=== PATIENT | male | born 1940 | race Asian ===

== ENCOUNTER 2019-06-10 06:56 | Day surgery (SDC) | payer MEDICARE, OTHER ==
[~2019-06-10 06:56] MED LIST: DIAZEPAM 5 MG TAB PO; DIPHENHYDRAMINE 50 MG CAP PO; FAMOTIDINE 20 MG TAB PO; SOD CHLORIDE 0.45% 1,000 ML IV
[2019-06-10 07:53] LABS: ADD MAN DIFF? NO
[2019-06-10 07:57] LABS: BASOPHIL # 0.1 10^3/ul (0.0-0.1); BASOPHILS % 2.4 % (0.0-2.0); EOSINOPHILS # 0.4 10^3/ul (0.0-0.5); EOSINOPHILS % 6.9 % (0.0-7.0); HEMOGLOBIN 14.2 g/dl (14.0-18.0); LYMPHOCYTES # 1.6 10^3/ul (0.8-2.9); LYMPHOCYTES % 28.3 % (15.0-51.0); MEAN CORPUSCULAR HEMOGLOBIN 30.8 pg (29.0-33.0); MEAN CORPUSCULAR HGB CONC 32.3 g/dl (32.0-37.0); MEAN CORPUSCULAR VOLUME 95.4 fl (82.0-101.0); MEAN PLATELET VOLUME 10.1 fl (7.4-10.4); MONOCYTE # 0.6 10^3/ul (0.3-0.9); MONOCYTES % 11.2 % (0.0-11.0); NEUTROPHIL # 2.8 10^3/ul (1.6-7.5); NEUTROPHILS % 50.8 % (39.0-77.0); PLATELET COUNT 299 10^3/UL (140-415); RED BLOOD COUNT 4.61 10^6/ul (4.70-6.10); RED CELL DISTRIBUTION WIDTH 13.1 % (11.5-14.5)
[2019-06-10 07:57] LABS: WHITE BLOOD COUNT 5.5 10^3/ul (4.8-10.8)
[2019-06-10 08:17] LABS: ANION GAP 10 (5-13); CARBON DIOXIDE 29 mmol/L (21-31); CHLORIDE 100 mmol/L (97-110); CHOL/HDL RATIO 3.1 RATIO; CHOLESTEROL 228 mg/dl (100-200); CREATININE 1.11 mg/dl (0.61-1.24); GLUCOSE 103 mg/dl (70-220); HDL CHOLESTEROL 72 mg/dl (31-75); LDL CHOLESTEROL,CALCULATED 144 mg/dl; POTASSIUM 4.1 mmol/L (3.5-5.1); SODIUM 139 mmol/L (135-144); TRIGLYCERIDES 58 mg/dl (0-149)
[2019-06-10 08:26] LABS: INR 0.96; PROTIME 12.9 Sec (11.9-14.9)
[2019-06-10 08:29] LABS: BLOOD UREA NITROGEN 21 mg/dl (7-20)
[2019-06-10 08:46] LABS: PARTIAL THROMBOPLASTIN TIME 42.7 Sec (23.0-35.0)
== END 2019-06-10 09:00 | disposition home or self-care (01) ==
LOC: SDS 06:56
DX: I48.91 Unspecified atrial fibrillation (principal); Z79.01 Long term (current) use of anticoagulants; Z53.09 Procedure and treatment not carried out because of other contraindication
CPT/HCPCS: 71045; 80048; 80061; 85025; 85610; 85730; 93005